=== PATIENT | female | born 1990 | race Caucasian/White ===

== ENCOUNTER 2021-10-22 19:40 | Emergency (ER) | payer OTHER ==
[~2021-10-22] VITALS: Ht 162.5 cm; Wt 65.8 kg
[2021-10-22] MEDS ORDERED: IBUPROFEN600 MG PO (21:40)
== END 2021-10-22 22:10 | disposition home or self-care (01) ==
LOC: ED 19:40
DX: M77.11 Lateral epicondylitis, right elbow (principal); Z88.8 Allergy status to other drugs, medicaments and biological substances; W22.09XA Striking against other stationary object, initial encounter; Y93.89 Activity, other specified; Y92.89 Other specified places as the place of occurrence of the external cause; Y99.8 Other external cause status